=== PATIENT | female | born 1980 | race Caucasian/White ===

== ENCOUNTER 2018-01-17 20:10 | Emergency (ER) | payer OTHER ==
[~2018-01-17] VITALS: Ht 149.9 cm; Wt 52.2 kg
[~2018-01-17 20:10] MED LIST: CARISOPRODOL 3350 MG PO; LAMICTAL100 MG PO; VICODIN 5-3001 EACH PO; XANAX 0.5 MG0.5 MG PO; ZOFRAN ODT4 MG PO
[2018-01-17 20:20] VITALS: BP 125/83
[2018-01-17] MEDS ORDERED: LAMICTAL100 MG PO (20:22)
[2018-01-17] MEDS ORDERED: SEROQUEL300 MG PO (20:23)
[2018-01-17] MEDS ORDERED: FLEXERIL PO (20:32)
[2018-01-17] MEDS ORDERED: IBUPROFEN 800800 MG PO (20:32)
[2018-01-17] MEDS ORDERED: HYDROCODON-ACE1 EAC7 PO (20:32)
== END 2018-01-17 21:16 | disposition home or self-care (01) ==
LOC: M.ERS 20:10
DX: S16.1XXA Strain of muscle, fascia and tendon at neck level, initial encounter (principal); F31.9 Bipolar disorder, unspecified; F17.210 Nicotine dependence, cigarettes, uncomplicated; Z88.1 Allergy status to other antibiotic agents; Z88.5 Allergy status to narcotic agent; Z91.041 Radiographic dye allergy status; V89.2XXA Person injured in unspecified motor-vehicle accident, traffic, initial encounter; Y93.I9 Activity, other involving external motion; Y92.89 Other specified places as the place of occurrence of the external cause; Y99.8 Other external cause status